=== PATIENT | female | born 1995 | race Caucasian/White ===

== ENCOUNTER 2024-02-02 16:29 | Inpatient (IN) ==
[2024-02-02] MEDS ORDERED: LIDOCAINE 1% LOCAL 20 ML VIAL INFIL PRN (18:11)
[2024-02-02] MEDS ORDERED: OXYTOCIN 30 UNITS/NSS 30 UNITS/500 ML BAG IV PRN (18:11)
[2024-02-02] MEDS ORDERED: CALCIUM CARBONATE 500 MG CHEWABLE TAB PO PRN (18:11)
[2024-02-02] MEDS: miSOPROStoL 50 MCG TAB PO ONE ×2 (18:24→22:29)
--- NOTE | 2024-02-02 18:56 | History & Physical Report ---
Date of Service February 02, 2024 Assessment & Plan (1) Premature rupture of membranes (PROM) affecting first : Plan Induction of labor at term. Ruptured membranes confirmed. Admission and Anticipated Discharge Date Admission Date: February 02, 2024 History of Present Illness Chief Complaint: Intrauterine 40 weeks 1 day gestation. Gush of amniotic fluid Primary Care Provider: NO PCP Patient is a 28-year-old 2 para 01 spontaneous AB. She is in good general health. She has been followed in the office for care and delivery. Her due date was 02/01/2024. She has had no problems. The day of admission around noon she noticed a gush of fluid. And this was followed by repetitive gushes of fluid coming sporadically. She was told to come to maternity. AmniSure test was positive. Indicating ruptured membranes. Placed on a monitor. And induction was started with p.o. Cytotec. Allergies Allergy/AdvReac Type Severity Reaction Status Date / Time amoxicillin Allergy Mild Hives Verified 02/02/24 17:03 Home Medications Medication Instructions Recorded Confirmed Type Vitron-C 1 PO DAILY 02/02/24 History vitamin no.[id number] 1 cap PO DAILY 02/02/24 02/02/24 History 27 mg iron-1 mg-200 mg capsule Past Med/Surg History Problem List (Updated 02/02/24 @ 18:55 by Jeff Hernandez MD) Premature rupture of membranes (PROM) affecting first Surgical History (Updated 02/02/24 @ 17:03 by Anjana Maravilla RN) [place] teeth removed Social History Smoking Status: Former smoker Hx Alcohol Use: No Hx Substance Use: No Preferred Language: Pashto 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 Heart had a regular rhythm S1 and S2 were normal. Chest was clear to auscultation and percussion. Trachea was midline. There is no cervical adenopathy. There was no CVA tenderness. There is no abdominal tenderness. Abdomen was consistent with a term with an estimated weight of 7 to 8 pounds. Pelvic exam revealed a vertex presentation. Cervix was posterior 80% effaced and 1 to 2 cm dilated. Station was a -2. Results & Data Results & Data Vital Signs (Past 12 Hours) Vital Signs Temp Pulse Resp BP 02/02/24 17:07 36.9 C 18 02/02/24 16:40 36.9 C 78 18 125/76 Diagnostic Findings Ruptured membranes confirmed Code Status & VTE Plan VTE Prophylaxis Plan VTE Prophylaxis will be ordered: No
[2024-02-02 19:10] LABS: Hematocrit (blood only) 34.9 % (37.0-47.0); Hemoglobin 11.8 g/dl (12.0-16.0); Mean Corpuscular Hemoglobin 29.9 pg (25.0-34.0); Mean Corpuscular Hgb Conc 33.8 g/dL (32.0-36.0); Mean Corpuscular Volume 88.4 fL (80.0-100.0); Mean Platelet Volume 11.4 fL (9.4-12.4); Platelet Count 164 K/uL (130-400); RDW Coefficient of Variation 13.2 % (11.5-14.5); RDW Standard Deviation 43.2 fL (36.4-46.3); Red Blood Count 3.95 M/uL (4.20-5.40); White Blood Count 11.47 K/ul (4.8-10.8)
[2024-02-02] MEDS: ACETAMINOPHEN 325 MG TAB PO PRN (22:33)
[2024-02-03] MEDS: miSOPROStoL 50 MCG TAB PO ONE (02:33)
[2024-02-03] MEDS ORDERED: ACETAMINOPHEN 500 MG TAB PO SCH (06:00)
--- NOTE | 2024-02-03 08:14 | Labor Progress Brief Note ---
Date of Service February 03, 2024 Assessment & Plan Admission and Anticipated Discharge Date Admission Date: February 02, 2024 Physical Exam Genitourinary: Manual OB Exam: + cervical dilation 4 cm, + cervical effacement 90%, + station -2 and + amniotic fluid clear OB Exam Monitor Tracing: + external FHT monitor used, + external uterine monitor used, + category I and + normal FHT variability Will start Oxytocin to augment contractions Results & Data Vital Signs (Past 12 Hours) Vital Signs Temp Pulse Resp BP 02/03/24 08:07 19 02/03/24 08:07 36.9 C 19 02/03/24 05:00 18 02/03/24 05:00 36.5 C 18 02/03/24 03:00 18 02/03/24 03:00 36.6 C 18 02/03/24 02:32 70 122/73 02/03/24 01:00 18 02/03/24 01:00 36.8 C 18 02/02/24 23:00 18 02/02/24 23:00 36.7 C 18 02/02/24 22:35 67 02/02/24 22:35 113/59 L 02/02/24 21:00 18 02/02/24 21:00 36.8 C 18 02/02/24 20:46 68 02/02/24 20:46 111/67
[2024-02-03] MEDS: OXYTOCIN 30 UNITS/NSS 30 UNITS/500 ML BAG IV PRN (08:36)
--- NOTE | 2024-02-03 11:47 | Labor Progress Brief Note ---
Date of Service February 03, 2024 Assessment & Plan Admission and Anticipated Discharge Date Admission Date: February 02, 2024 Physical Exam Genitourinary: Manual OB Exam: + cervical dilation 7 cm and 8 cm, + cervical effacement 100%, + station 0 and + amniotic fluid clear OB Exam Monitor Tracing: + external FHT monitor used, + external uterine monitor used, + category I and + normal FHT variability Amni-hook used to break forebag with clear fluid Results & Data Vital Signs (Past 12 Hours) Vital Signs Temp Pulse Resp BP 02/03/24 11:06 86 144/75 H 02/03/24 10:24 36.6 C 68 131/81 02/03/24 08:07 19 02/03/24 08:07 36.9 C 19 02/03/24 05:00 18 02/03/24 05:00 36.5 C 18 02/03/24 03:00 18 02/03/24 03:00 36.6 C 18 02/03/24 02:32 70 122/73 02/03/24 01:00 18 02/03/24 01:00 36.8 C 18
--- NOTE | 2024-02-03 12:30 | Labor Progress Brief Note ---
Date of Service February 03, 2024 Subjective Reason For Note: Requested By RN feeling pressure Assessment & Plan Admission and Anticipated Discharge Date Admission Date: February 02, 2024 Physical Exam Genitourinary: Manual OB Exam: + cervical dilation 9 cm, + cervical effacement 100%, + station 0 and + amniotic fluid clear OB Exam Monitor Tracing: + external FHT monitor used, + external uterine monitor used, + category I and + normal FHT variability Results & Data Vital Signs (Past 12 Hours) Vital Signs Temp Pulse Resp BP 02/03/24 11:06 86 144/75 H 02/03/24 10:24 36.6 C 68 131/81 02/03/24 08:07 19 02/03/24 08:07 36.9 C 19 02/03/24 05:00 18 02/03/24 05:00 36.5 C 18 02/03/24 03:00 18 02/03/24 03:00 36.6 C 18 02/03/24 02:32 70 122/73 02/03/24 01:00 18 02/03/24 01:00 36.8 C 18
--- NOTE | 2024-02-03 12:46 | Labor Progress Brief Note ---
Date of Service February 03, 2024 Assessment & Plan Admission and Anticipated Discharge Date Admission Date: February 02, 2024 Physical Exam Genitourinary: Manual OB Exam: + cervical dilation 10 cm, + cervical effacement 100% and + station (will start to push) + 1 OB Exam Monitor Tracing: + external FHT monitor used, + external uterine monitor used, + category I and + normal FHT variability Results & Data Vital Signs (Past 12 Hours) Vital Signs Temp Pulse Resp BP 02/03/24 11:06 86 144/75 H 02/03/24 10:24 36.6 C 68 131/81 02/03/24 08:07 19 02/03/24 08:07 36.9 C 19 02/03/24 05:00 18 02/03/24 05:00 36.5 C 18 02/03/24 03:00 18 02/03/24 03:00 36.6 C 18 02/03/24 02:32 70 122/73 02/03/24 01:00 18 02/03/24 01:00 36.8 C 18
[2024-02-03] MEDS: LACTATED RINGER'S 1,000 ML IV SCH ×2 (14:20→18:12)
[2024-02-03] MEDS ORDERED: MoRPHine SULFATE PF 1 MG/ML 10 ML AMP/VIAL ONE (14:37)
[2024-02-03] MEDS ORDERED: ONDANSETRON INJ 2 MG/ML 2 ML VIAL ONE (14:37)
[2024-02-03] MEDS ORDERED: DEXAMETHASONE SOD INJ 4 MG/ML VIAL ONE (14:37)
[2024-02-03] MEDS ORDERED: KETOROLAC 30 MG/ML VIAL ONE (14:37)
[2024-02-03] MEDS ORDERED: OXYTOCIN 10 UNITS/ML VIAL ONE (14:37)
[2024-02-03] MEDS ORDERED: fentaNYL citrate PF 100 MCG/2 ML VIAL ONE (14:37)
[2024-02-03] MEDS ORDERED: PHENYLEPHRINE HCL 25 MG/250 ML NSS IV ONE (14:37)
[2024-02-03] MEDS: CITRIC ACID/SODIUM CITRATE 15 ML UDC ONE (14:42)
--- NOTE | 2024-02-03 14:43 | Labor Progress Brief Note ---
Date of Service February 03, 2024 Assessment & Plan Admission and Anticipated Discharge Date Admission Date: February 02, 2024 Physical Exam Genitourinary: OB Exam Monitor Tracing: + external FHT monitor used, + category II and + normal FHT variability patient continues to push with low baseline but good variability. She does not want to push anymore and we are proceeding with . Consents signed. I explained the risks/benefits of the procedure to patient and her . Results & Data Vital Signs (Past 12 Hours) Vital Signs Temp Pulse Resp BP Pulse Ox 02/03/24 14:35 64 100 02/03/24 14:30 64 100 02/03/24 14:26 66 86 L 02/03/24 14:25 61 100 02/03/24 14:20 71 100 02/03/24 14:15 82 98 02/03/24 13:20 36.7 C 02/03/24 11:06 86 144/75 H 02/03/24 10:24 36.6 C 68 131/81 02/03/24 08:07 19 02/03/24 08:07 36.9 C 19 02/03/24 05:00 18 02/03/24 05:00 36.5 C 18 02/03/24 03:00 18 02/03/24 03:00 36.6 C 18
[2024-02-03] MEDS: CLINDAMYCIN/D5W 900 MG/50 ML BAG IV SCH (14:51)
[2024-02-03] MEDS: AZITHROMYCIN 250 MG TAB PO SCH (14:52)
--- NOTE | 2024-02-03 15:18 | Anesthesiology Consultation ---
Date of Service February 03, 2024 Assessment & Plan Chart Review Chart Review: Acceptable Risk for Surgery and Patient NOT seen in Pre Admission Testing Consults Requested none ASA ASA2E Proposed Anesthesia Anesthesia Type: Spinal Risk / Benefits Reviewed With: PT / POA / Parent / Guardian, Accepts Plan and Informed Consent Obtained Additional Comments: Stat c/s called for deceleration. HR improved somewhat, per OB, time for spinal anesthesia. ASA2E History Height/Weight Height: 5 ft 2 in Weight: 89.904 kg Allergies Allergy/AdvReac Type Severity Reaction Status Date / Time amoxicillin Allergy Mild Hives Verified 02/02/24 17:03 Medications Home Medications Medication Instructions Recorded Confirmed Last Taken Vitron-C 1 PO DAILY 02/02/24 02/01/24 22:00 vitamin no.[id number] 1 cap PO DAILY 02/02/24 02/02/24 02/01/24 22:00 27 mg iron-1 mg-200 mg capsule Active Medications Generic Name Dose Route Start Last Admin Trade Name Freq PRN Reason Stop Dose Admin Acetaminophen 650 mg 02/02/24 18:11 02/02/24 22:33 Acetaminophen 325 Mg Tab PO 03/03/24 18:10 650 mg Q6H PRN Administration Pain Azithromycin 500 mg 02/03/24 06:00 02/03/24 14:52 Azithromycin 250 Mg Tab PO 02/04/24 05:59 500 mg PREOP THADDEUS Administration Oxytocin 30 units in 500 mls @ 5 mls/hr 02/03/24 08:13 02/03/24 11:03 Pitocin 30 Units/Nss IV 02/05/24 08:12 0.3 units/hr .Q24H PRN 5 mls/hr Labor Induction/Augmentation Titration Protocol 0.3 UNITS/HR NPO Date Last Intake of Fluids: 02/03/24 Time Last Intake of Fluids: 14:00 Date Last Intake of Solids: 02/03/24 Time Last Intake of Solids: 05:00 Exercise / Class Metabolic Activity 1 > 8 Run/Swim/Ski/Tennis Past Surgical History Surgical History (Updated 02/02/24 @ 17:03 by Anjana Maravilla RN) [place] teeth removed Past Anesthesia History No Hx of Anesthesia Complications and No Family Hx of Anesthesia Complications History of PONV No Hx of PONV and No Hx of Motion Sickness Social History Smoking Status: Former smoker Hx Alcohol Use: No Hx Substance Use: No Review of Systems ROS Unobtainable: All systems reviewed & are unremarkable except as noted in HPI & below Physical Exam Vital Signs Last Vital Signs Temp 36.7 C 02/03/24 13:20 Pulse 64 02/03/24 14:30 Resp 19 02/03/24 08:07 BP 144/75 H 02/03/24 11:06 Pulse Ox 100 02/03/24 14:30 ENMT Mouth: no TMJ abnormality Thyromental Distance: > or= 3.5 Finger Breadths Mallampati Class: II Neck normal visual inspection and trachea midline; neck extension not limited Respiratory normal respiratory effort Auscultation: lungs clear to auscultation bilaterally Cardiovascular Rate/Rhythm: regular rate and regular rhythm Heart Sounds: no murmur Musculoskeletal Spine: normal cervical ROM Extremities: full ROM of extremities Neurologic moves all extremities Psychiatric Orientation: alert and oriented x 3 Testing Laboratory Results 02/02/24 18:52
[2024-02-03] MEDS ORDERED: NALOXONE HCL 0.08 MG in SYRINGE 1.8 ML IV PRN (15:21)
[2024-02-03] MEDS ORDERED: MoRPHine SULFATE PF 1 MG/ML 10 ML AMP/VIAL INT SPINAL ONE (15:21)
[2024-02-03] MEDS ORDERED: ePHEDrine sulfate 50 MG/ML AMP IV PRN (15:21)
[2024-02-03] MEDS ORDERED: diphenhydrAMINE 50 MG/ML VIAL IV PRN (15:21)
[2024-02-03] MEDS ORDERED: DROPERIDOL 5 MG/2 ML VIAL IV PRN (15:21)
[2024-02-03] MEDS ORDERED: NALBUPHINE HCL INJ 10 MG/ML AMP IV PRN (15:21)
[2024-02-03] MEDS ORDERED: MEPERIDINE HCL 25 MG/ML CARP/VIAL IV PRN (15:21)
[2024-02-03] MEDS ORDERED: HYDROmorphone INJ 0.5 MG/0.5 ML SYR IV PRN (15:21)
[2024-02-03] MEDS ORDERED: NALOXONE HCL 0.4 MG/1 ML VIAL/CARP IV PRN (15:21)
[2024-02-03] MEDS ORDERED: PROMETHAZINE 6.25 MG/50.25 ML BAG IV PRN (15:21)
[2024-02-03] MEDS ORDERED: METOCLOPRAMIDE HCL 20 MG in SODIUM CHLORIDE 0.9% 50 ML IV PRN (15:21)
[2024-02-03] MEDS ORDERED: ONDANSETRON INJ 2 MG/ML 2 ML VIAL IV PRN (15:21)
[2024-02-03] MEDS ORDERED: NALOXONE HCL 1 MG in SODIUM CHLORIDE 0.9% 1,000 ML IV PRN (15:21)
[2024-02-03] MEDS ORDERED: DC INTRASPINAL MORPHINE SCH (15:30)
[2024-02-03] MEDS ORDERED: NO NARCOTICS OR SEDATIVES SCH (15:30)
[2024-02-03] MEDS ORDERED: ePHEDrine sulfate 50 MG/5 ML SYR ONE (15:38)
[2024-02-03] MEDS ORDERED: LACTATED RINGER'S 1,000 ML IV SCH (15:45)
[2024-02-03] MEDS ORDERED: BENZOCAINE 20% SPRY 85 APPLN/85 GM CAN EXT PRN (16:08)
[2024-02-03] MEDS ORDERED: SENNA 8.6 MG TAB PO PRN (16:08)
[2024-02-03] MEDS ORDERED: CALCIUM CARBONATE 500 MG CHEWABLE TAB PO PRN (16:08)
[2024-02-03] MEDS ORDERED: HYDROCORTISONE ACETATE 25 MG SUPP PR PRN (16:08)
--- NOTE | 2024-02-03 16:09 | Post Operative Brief Note ---
Immediate Post Op Note Date of Surgery February 03, 2024 Pre & Post Diagnosis Operation Date: 02/03/24 14:40 Pre-Op Diagnosis: 1:Arrest of descent 2: Maternal request I identified the patient and participated in the time-out.: Yes Procedure Operation Date: 02/03/24 14:40 Actual Procedures p Section in LD with result of Live female child at 1509 - Tico Owens MD Surgeon Tico Owens MD Retail Clerk Margarita Quantitative Blood Loss (QBL) 747 ml Findings Consistent with Post-Op Diagnosis live female Apgars 9/9 weight 7lbs. 7.6 oz. Fluids 1000 ml. Specimens Specimen Description: A: Placenta B: Cord Blood Drains Rollins Catheter (Placed in patients LD room) Anesthesia Type Spinal Complications none Disposition Accompanied Patient To Recovery: Yes Overlapping Procedure I was present for: the critical portions of procedure. I was immediately available: during the entire case. Back up surgeon: was not required during procedure.
--- NOTE | 2024-02-03 16:14 | Operative Report ---
Post Operative Report Pre & Post Diagnosis Operation Date: 02/03/24 14:40 Pre-Op Diagnosis: 1:Arrest of descent 2: Maternal request I identified the patient and participated in the time-out.: Yes Procedure Operation Date: 02/03/24 14:40 Actual Procedures p Section in LD with result of Live female child at 1509 - Tico Owens MD Surgeon Tico Owens MD Dispatcher [employer] Margarita Barton TATTOO ARTIST Quantitative Blood Loss (QBL) 747 ml Findings Consistent with Post-Op Diagnosis Live female Apgars 9 and 9 weight 7 pounds 7.6 ounces Fluids 1000 mL LR Specimens Cord blood and placenta Drains none Anesthesia Type Spinal Complications None Disposition Accompanied Patient To Recovery: Yes Indications Arrest of descent and maternal request Description of Procedure Under satisfactory spinal anesthesia the patient was prepped draped in usual sterile fashion a timeout was called and the patient received antibiotics preop and then a low Pfannenstiel incision was then made carrying the incision down through the skin subcutaneous layer fascia upon entering into the abdominal cavity the peritoneum was opened widely and in the AP diameter bladder blade was then placed bladder flap was developed with sharp dissection using Metzenbaum scissors the bladder blade was replaced a low segment transverse incision over the lower uterine segment was made incision was widened in the AP diameter noted was thin meconium fluid. Delivery was from the vertex presentation with delivery of a live female the cord was doubly clamped and cut after a 1 minute delay delivering a live female with Apgars of 9 and 9 weight 7 pounds 7.6 ounces. Cord blood was then obtained baby was handed to the director of state. Placenta was then delivered spontaneously and intact submitted to pathology. The uterus was then exteriorized ring forceps were then placed on both angles and the inferior margin the uterus was cleaned of all clots and debris with a lap pad uterus was then closed with a double layer closure of 0 Vicryl suture followed by a second imbricating suture of 0 Vicryl suture. It was found that the uterus was still somewhat boggy she received a shot of Methergine IM. Tubes ovaries bilaterally were found to be within normal limits after the uterus was closed the initial sponge needle instrument count were found to be correct the uterus was now firm. The fascia was then reapproximated from left to right with 0 Vicryl suture in a continuous fashion subcuticular space was then closed with 3-0 plain suture and the skin was then reapproximated with 4-0 Monocryl suture. Steri-Strips cut in half were then placed on the incision the final sponge need le instrument count were found to be correct. Estimated blood loss 747 mL urine output 200 mL total fluids 1 L the patient was then placed supine on a stretcher she was taken to recovery room in stable condition. I attest to the content of the Intraoperative Record and any orders documented therein. Any exceptions are noted below.
[2024-02-03] MEDS ORDERED: OXYTOCIN 10 UNITS in LACTATED RINGER'S 1,000 ML IV SCH (16:15)
[2024-02-03] MEDS ORDERED: KETOROLAC 30 MG/ML VIAL IV SCH (16:15)
--- NOTE | 2024-02-03 16:41 | Anesthesiology Progress Note ---
Date of Service February 03, 2024 Anesthesia Post Procedure Vital Signs Vital Signs: Temp Pulse Pulse Resp BP BP Pulse Ox 02/03/24 16:36 62 97 02/03/24 16:31 66 115/74 98 02/03/24 16:26 61 98 02/03/24 16:21 64 130/73 97 02/03/24 16:18 61 90 02/03/24 16:16 64 99 02/03/24 16:12 60 135/62 02/03/24 16:11 60 99 02/03/24 16:06 79 97 02/03/24 16:01 72 100 02/03/24 15:56 73 98 02/03/24 15:51 36.7 C 62 19 133/75 02/03/24 15:51 68 133/75 99 02/03/24 14:45 75 100 02/03/24 14:40 65 100 02/03/24 14:35 64 100 02/03/24 14:30 64 100 02/03/24 14:26 66 86 L 02/03/24 14:25 61 100 02/03/24 14:20 71 100 02/03/24 14:15 82 98 02/03/24 13:20 36.7 C 02/03/24 11:06 86 144/75 H 02/03/24 10:24 36.6 C 68 131/81 02/03/24 08:07 19 02/03/24 08:07 36.9 C 19 02/03/24 05:00 18 02/03/24 05:00 36.5 C 18 02/03/24 03:00 18 02/03/24 03:00 36.6 C 18 02/03/24 02:32 70 122/73 02/03/24 01:00 18 02/03/24 01:00 36.8 C 18 02/02/24 23:00 18 02/02/24 23:00 36.7 C 18 02/02/24 22:35 67 02/02/24 22:35 113/59 L 02/02/24 21:00 18 02/02/24 21:00 36.8 C 18 02/02/24 20:46 68 02/02/24 20:46 111/67 02/02/24 19:15 36.8 C 18 02/02/24 19:10 18 02/02/24 19:10 36.8 C 18 02/02/24 17:07 36.9 C 18 O2 Del Method 02/03/24 16:36 02/03/24 16:31 02/03/24 16:26 02/03/24 16:21 02/03/24 16:18 02/03/24 16:16 02/03/24 16:12 02/03/24 16:11 02/03/24 16:06 02/03/24 16:01 02/03/24 15:56 02/03/24 15:51 Room Air 02/03/24 15:51 02/03/24 14:45 02/03/24 14:40 02/03/24 14:35 02/03/24 14:30 02/03/24 14:26 02/03/24 14:25 02/03/24 14:20 02/03/24 14:15 02/03/24 13:20 02/03/24 11:06 02/03/24 10:24 02/03/24 08:07 02/03/24 08:07 02/03/24 05:00 02/03/24 05:00 02/03/24 03:00 02/03/24 03:00 02/03/24 02:32 02/03/24 01:00 02/03/24 01:00 02/02/24 23:00 02/02/24 23:00 02/02/24 22:35 02/02/24 22:35 02/02/24 21:00 02/02/24 21:00 02/02/24 20:46 02/02/24 20:46 02/02/24 19:15 02/02/24 19:10 02/02/24 19:10 02/02/24 17:07 Transfer of Care Handoff Completed per policy Notes Mental Status: alert / awake / arousable Patient Amnestic to Procedure: Yes Nausea / Vomiting: adequately controlled Pain: adequately controlled Airway Patency, RR, SpO2: stable & adequate BP & HR: stable & adequate Hydration State: stable & adequate Neuraxial Anesthesia: was administered and sensory block is resolving Anesthetic Complications: no major complications apparent and Pt Satisfied with anesthetic care
[2024-02-03] MEDS: CITRIC ACID/SODIUM CITRATE 15 ML UDC PO SCH (18:06)
[2024-02-03] MEDS: DIPHTHER/TETAN/PERTUS Vaccine (Tdap, Adol/Adult) 0.5mL IM ONE (18:09)
[2024-02-03] MEDS: SIMETHICONE 80 MG CHEW PO SCH (18:12)
[2024-02-03] MEDS ORDERED: IBUPROFEN 600 MG TAB PO SCH (22:00)
[2024-02-03] MEDS: ACETAMINOPHEN 325 MG TAB PO SCH (22:34)
[2024-02-03] MEDS: OXYTOCIN 20 UNITS/LR 1,002 ML IV SCH (22:34)
[2024-02-03] MEDS: KETOROLAC 30 MG/ML VIAL IV SCH (22:34)
[2024-02-04] MEDS: DOCUSATE SODIUM 100 MG CAP PO SCH (05:06)
[2024-02-04] MEDS ORDERED: AZITHROMYCIN 500 MG in DEXTROSE 5% 250 ML IV SCH (06:00)
[2024-02-04 06:19] LABS: Basophils # (auto) 0.03 K/uL (0.00-0.20); Basophils % (auto) 0.2 %; Eosinophils # (auto) 0.01 K/uL (0.00-0.50); Eosinophils % (auto) 0.1 %; Hemoglobin 9.7 g/dl (12.0-16.0); Immature Granulocytes # (auto) 0.13 K/uL (0.01-0.20); Immature Granulocytes % (auto) 0.7 %; Lymphocytes % (auto) 8.7 %; Mean Corpuscular Hemoglobin 29.8 pg (25.0-34.0); Mean Corpuscular Hgb Conc 33.4 g/dL (32.0-36.0); Mean Platelet Volume 11.7 fL (9.4-12.4); Monocytes # (auto) 1.59 K/uL (0.11-0.59); Monocytes % (auto) 8.1 %; Neutrophils # (auto) 16.19 K/uL (1.40-6.50); Neutrophils % (auto) 82.2 %; Platelet Count 131 K/uL (130-400); RDW Coefficient of Variation 13.3 % (11.5-14.5); RDW Standard Deviation 43.8 fL (36.4-46.3); Red Blood Count 3.26 M/uL (4.20-5.40); White Blood Count 19.65 K/ul (4.8-10.8)
[2024-02-04] MEDS: FERROUS SULFATE 325 MG TAB PO SCH (08:16)
[2024-02-04] MEDS: PRENATAL VITAMIN 1 TAB PO SCH (08:16)
[2024-02-04] MEDS ORDERED: DOCOSAHEXAENOIC ACID PO SCH (09:00)
[2024-02-04] MEDS ORDERED: IRON PO SCH (09:00)
[2024-02-04] MEDS ORDERED: FOLIC ACID PO SCH (09:00)
[2024-02-04] MEDS ORDERED: MULTIVITAMIN PO SCH (09:00)
[2024-02-04] MEDS ORDERED: PROMETHAZINE 12.5 MG/50.5 ML BAG IV PRN (09:22)
[2024-02-04] MEDS ORDERED: oxyCODONE HCL IR 5 MG TAB (IMMEDIATE RELEASE) PO PRN (09:22)
[2024-02-04] MEDS ORDERED: diphenhydrAMINE 50 MG/ML VIAL IV PRN (09:22)
[2024-02-04] MEDS ORDERED: diphenhydrAMINE Capsule 25 MG CAP PO PRN (09:22)
[2024-02-04] MEDS ORDERED: ONDANSETRON INJ 2 MG/ML 2 ML VIAL IV PRN (09:22)
[2024-02-04] MEDS ORDERED: HYDROmorphone INJ 0.5 MG/0.5 ML SYR IV PRN (09:22)
--- NOTE | 2024-02-04 10:34 | Obstetrical Progress Note ---
Date of Service February 04, 2024 Assessment & Plan (1) Postop check: POD #1 Pt doing well No complaints continue day #1 care Subjective Ambulation: ambulating normally Voiding: no voiding problems Passing Gas:: Yes Diet Tolerance:: clear liquids Lochia:: Small Feeding Type:: breast feeding Review of Systems All systems reviewed & are unremarkable except as noted in HPI & below Physical Exam Constitutional WD/WN, vitals as above well developed and well nourished Eyes PERRL, conjunctivae normal, anicteric sclerae ENMT external ear and nose normal, oropharynx normal Neck trachea midline, no thyromegaly Respiratory normal respiratory effort, lungs clear to auscultation Cardiovascular RRR, no murmur, no edema Chest (Breasts) normal inspection/palpation of breasts Gastrointestinal (Abdomen) normal bowel sounds, soft, nontender, no hepatosplenomegaly Musculoskeletal no cyanosis or clubbing, extremities motor strength 5/5 Skin no rashes, warm and dry + incision (Clean,dry and intact) Neurologic patellar DTR's 2+ bilat, sensation intact Psychiatric A+Ox3, euthymic affect Genitourinary normal external appearance Lymphatic no cervical or axillary lymphadenopathy Results & Data Vital Signs (Past 12 Hours) Vital Signs Temp Pulse Resp BP Pulse Ox O2 Del Method 02/04/24 09:30 20 98 02/04/24 08:30 20 97 02/04/24 07:35 20 98 02/04/24 07:35 36.7 C 64 20 109/71 98 Room Air 02/04/24 06:36 14 96 02/04/24 05:00 16 97 02/04/24 04:20 36.4 C L 65 14 107/68 99 Room Air 02/04/24 04:16 16 96 02/04/24 03:00 14 97 02/04/24 02:00 16 95 02/04/24 01:00 14 98 02/04/24 00:00 16 97 02/03/24 23:46 16 95 02/03/24 23:30 36.6 C 69 16 125/81 95 Room Air
[2024-02-04] MEDS ORDERED: KETOROLAC 30 MG/ML VIAL IV PRN (16:03)
[2024-02-04] MEDS ORDERED: IBUPROFEN 600 MG TAB PO SCH (16:15)
[2024-02-04] MEDS: bisacodyL 5 MG TABEC PO SCH (20:23)
[2024-02-04] MEDS: IBUPROFEN 600 MG TAB PO SCH (23:04)
[2024-02-05 06:49] LABS: Hematocrit (blood only) 29.9 % (37.0-47.0)
[2024-02-05 08:20] VITALS: RESP 16; TEMP 97.9; O2SAT 98
--- NOTE | 2024-02-05 10:15 | Obstetrical Progress Note ---
Date of Service February 05, 2024 Subjective Ambulation: ambulating normally Voiding: no voiding problems Passing Gas:: Yes Diet Tolerance:: regular diet Lochia:: Small Feeding Type:: breast feeding Current Pain Level(1-10): 0 doing well. possible d/c later today. Physical Exam Constitutional WD/WN, vitals as above Gastrointestinal (Abdomen) Inspection/Auscultation: abdomen normal to inspection incision c/d/i abdomen soft and non-tender. fundus firm below U. Musculoskeletal Extremities: extremities normal to inspection Skin no rashes, warm and dry Neurologic patellar DTR's 2+ bilat, sensation intact Psychiatric A+Ox3, euthymic affect Results & Data Vital Signs (Past 12 Hours) Vital Signs Temp Pulse Pulse Resp BP BP Pulse Ox 02/05/24 08:11 36.6 C 76 16 133/85 98 02/05/24 01:00 36.5 C 80 18 112/75 96 02/04/24 23:12 36.6 C 78 16 112/73 98 O2 Del Method 02/05/24 08:11 Room Air 02/05/24 01:00 Room Air 02/04/24 23:12 Room Air Laboratory Results 02/02/24 02/02/24 02/03/24 18:52 21:25 Unknown WBC 11.47 H RBC 3.95 L Hgb 11.8 L Hct 34.9 L MCV 88.4 MCH 29.9 MCHC 33.8 RDW Std Deviation 43.2 RDW Coeff of Barbara 13.2 Plt Count 164 MPV 11.4 Immature Gran % (Auto) Neut % (Auto) Lymph % (Auto) [place] % (Auto) Eos % (Auto) Baso % (Auto) Neut # (Auto) Lymph # (Auto) [place] # (Auto) Eos # (Auto) Baso # (Auto) Immature Gran # (Auto) Amniotic Protein POS Treponema pallidum Ab Negative Blood Type A Negative Cancelled Antibody Screen NEGATIVE Cancelled Screen 02/04/24 02/05/24 05:37 06:24 WBC 19.65 H RBC 3.26 L Hgb 9.7 L 10.0 L Hct 29.0 L 29.9 L MCV 89.0 MCH 29.8 MCHC 33.4 RDW Std Deviation 43.8 RDW Coeff of Barbara 13.3 Plt Count 131 MPV 11.7 Immature Gran % (Auto) 0.7 Neut % (Auto) 82.2 Lymph % (Auto) 8.7 [place] % (Auto) 8.1 Eos % (Auto) 0.1 Baso % (Auto) 0.2 Neut # (Auto) 16.19 H Lymph # (Auto) 1.70 [place] # (Auto) 1.59 H Eos # (Auto) 0.01 Baso # (Auto) 0.03 Immature Gran # (Auto) 0.13 Amniotic Protein Treponema pallidum Ab Blood Type A Negative Antibody Screen NEGATIVE Screen Negative
[2024-02-05] MEDS: MAGNESIUM HYDROXIDE SUSP 30 ML UDC PO PRN (12:20)
[2024-02-05 14:22] VITALS: BP 112/75; PULSE 80
[2024-02-05] MEDS ORDERED: IBUPROFEN 600 MG TAB PO PRN (16:03)
[2024-02-05] MEDS ORDERED: bisacodyL 10 MG SUPP PR PRN (16:03)
[2024-02-05] MEDS ORDERED: ACETAMINOPHEN 325 MG TAB PO PRN (22:03)
== END 2024-02-05 15:45 | disposition home or self-care (01) | DRG 788 ==
LOC: OPB 16:29 → 4S1 16:31 → 4E2 02-03 18:57